=== PATIENT | male | born 1980 | race Two or more races ===

== ENCOUNTER 2024-01-08 15:32 | Emergency (ER) | payer SELFPAY ==
[~2024-01-08] VITALS: Ht 162.6 cm; Wt 73.0 kg
[2024-01-08] MEDS: SODIUM CHLORIDE 0.9% 1,000 ML IVB ONE (16:00)
[2024-01-08 16:16] VITALS: PULSE 76; RESP 12; O2SAT 100
[2024-01-08] MEDS: NALOXONE HCL 0.4 MG/ML VIAL IV ONE (16:24)
[2024-01-08 19:30] VITALS: BP 135/85; TEMP 98.6
[2024-01-08 20:00] VITALS: PULSE 71; RESP 13; O2SAT 99
== END 2024-01-08 21:30 | disposition home or self-care (01) ==
LOC: ER 15:32 → EDBD 15:32 → ER 21:30
DX: T40.411A Poisoning by fentanyl or fentanyl analogs, accidental (unintentional), initial encounter (principal); F17.210 Nicotine dependence, cigarettes, uncomplicated; F15.90 Other stimulant use, unspecified, uncomplicated; Y92.89 Other specified places as the place of occurrence of the external cause
CPT/HCPCS: 36415; 80320; 96361; 96374; 99283; J2310; J7030